=== PATIENT | female | born 1955 | race Caucasian/White ===

== ENCOUNTER 2018-07-23 14:34 | Emergency (ER) | payer MEDICAID ==
[~2018-07-23] VITALS: Ht 154.9 cm; Wt 73.6 kg
[2018-07-23 15:24] VITALS: BP 125/86
--- NOTE | 2018-07-23 15:26 | NUR ---
AMBULATES BACK TO THE LOBBY
--- NOTE | 2018-07-23 15:45 | NUR ---
PT TAKEN OFF FROM THE LOBBY VIA WHEEL CHAIR FOR XRAY ON THE KNEE BY OPTOMET[employer]ST/PRACTICE OWNER EUGENE
[2018-07-23 17:03] VITALS: BP 122/85
--- NOTE | 2018-07-23 17:04 | NUR ---
Patient discharged BY DR. BHATT with v/s stable. Written and verbal after care instructions given and explained. Patient alert, oriented and verbalized understanding of instructions. Ambulatory with steady gait. All questions addressed prior to discharge. ID band removed. Patient advised to follow up with PMD. Rx of NAPROSYN given. Patient educated on indication of medication including possible reaction and side effects. Opportunity to ask questions provided and answered.
== END 2018-07-23 17:04 | disposition home or self-care (01) ==
LOC: MED 14:34
DX: S83.412A Sprain of medial collateral ligament of left knee, initial encounter (principal); F32.9 Major depressive disorder, single episode, unspecified; E11.9 Type 2 diabetes mellitus without complications; I10 Essential (primary) hypertension; X58.XXXA Exposure to other specified factors, initial encounter; Y93.89 Activity, other specified; Y92.89 Other specified places as the place of occurrence of the external cause; Y99.8 Other external cause status
CPT/HCPCS: 73562; 99283